=== PATIENT | male | born 2005 | race Caucasian/White ===

== ENCOUNTER 2024-07-21 11:43 | Emergency (ER) | payer OTHER, SELFPAY ==
[2024-07-21 11:57] VITALS: BP 131/71; PULSE 103; RESP 16; TEMP 37; O2SAT 99
--- NOTE | 2024-07-21 12:16 | ED.EAR ---
HPI - Ear Problem General Chief complaint: Ear Stated complaint: right ear issue Time Seen by Provider: 07/21/24 12:04 Source: patient and RN notes reviewed Mode of arrival: ambulatory Limitations: no limitations History of Present Illness HPI Narrative: Patient presents today complaining of a 4-5 month history of clear fluid leaking from the right ear with decreased hearing as well as increased popping in the last month. Yesterday he sneezed and has bloody drainage from the ear. Denies any current pain. Related Data Allergies Allergy/AdvReac Type Severity Reaction Status Date / Time No Known Allergies Allergy Verified 07/21/24 12:00 Review of Systems Review of Systems: CONSTITUTIONAL: Denies body aches, fever, chills, or sweats. EYES: Denies visual changes, redness, or discharge. ENT: Denies rhinorrhea, congestion, sore throat. + right ear popping and drainage CARDIOVASCULAR: Denies chest pain, palpitations, or edema. RESPIRATORY: Denies cough or dyspnea. GASTROINTESTINAL: Denies abdominal pain, nausea, vomiting, or diarrhea. GENITOURINARY: Denies dysuria or hematuria. SKIN: Denies rash, itching, or wounds. MUSCULOSKELETAL: Denies back pain, joint pain, or myalgia. NEUROLOGIC: Denies headache, numbness, tingling, or weakness. PSYCH: Denies depression or anxiety. PMFSH Comments At time of signature, I have reviewed and agree with nursing past medical, surgical, social and family history unless otherwise noted. Please see nursing chart for further information. There is no relevant family history pertinent to the presenting complaint Exam Narrative: GENERAL: Well-appearing, well-nourished, and in no acute distress. HEAD: Normocephalic, atraumatic. EYES: EOMI. No redness or drainage. Conjunctivae normal. ENT: Mucous membranes pink and moist. Right ear: External canal normal. TM unable to be visualized due to copious blood-tinged purulent discharge in the canal. NECK: Normal AROM. CHEST: No respiratory distress. EXTREMITIES: Normal range of motion. No edema. SKIN: Warm, dry, no rash. Capillary refill normal. Normal skin turgor. NEURO: No focal deficits. Alert and oriented x3. Gait steady. PSYCH: Normal affect. No signs of depression or anxiety. Course Course Level of Care: Express Care Visit Vital Signs Vital signs: Vital Signs Temperature 98.6 F 07/21/24 11:57 Pulse Rate 103 H 07/21/24 11:57 Respiratory Rate 16 07/21/24 11:57 Blood Pressure 131/71 07/21/24 11:57 Pulse Oximetry 99 07/21/24 11:57 Oxygen Delivery Room Air 07/21/24 11:57 Temperature 98.6 F 07/21/24 11:57 Pulse Rate 103 H 07/21/24 11:57 Respiratory Rate 16 07/21/24 11:57 Blood Pressure 131/71 07/21/24 11:57 Pulse Oximetry 99 07/21/24 11:57 Oxygen Delivery Room Air 07/21/24 11:57 Reviewed Medical Decision Making MDM Narrative Medical decision making narrative: Removed some drainage from canal with Qtip but was still unable to visualize TM. Prescription for Augmentin sent to pharmacy. Anticipatory guidance given. Differential Diagnosis Differential Diagnosis: Otitis media, deer externa, ruptured TM, serous otitis, cerumen impaction Vital Signs Vital Signs: Vital Signs Temperature 98.6 F 07/21/24 11:57 Pulse Rate 103 H 07/21/24 11:57 Respiratory Rate 16 07/21/24 11:57 Blood Pressure 131/71 07/21/24 11:57 Pulse Oximetry 99 07/21/24 11:57 Oxygen Delivery Room Air 07/21/24 11:57 Temperature 98.6 F 07/21/24 11:57 Pulse Rate 103 H 07/21/24 11:57 Respiratory Rate 16 07/21/24 11:57 Blood Pressure 131/71 07/21/24 11:57 Pulse Oximetry 99 07/21/24 11:57 Oxygen Delivery Room Air 07/21/24 11:57 Critical Care Time Critical Care Time Critical Care Time: No Discharge Plan Discharge Clinical Impression: Acute suppur right otitis media w/spontan rupture of tympanic membrane Qualifiers: Recurrence: non-recurrent Qualified Code(s): H66
== END 2024-07-21 12:26 | disposition home or self-care (01) ==
PROVIDERS: Emergency Provider Nurse Practitioner
DX: H66.011 Acute suppurative otitis media with spontaneous rupture of ear drum, right ear (principal)
CPT/HCPCS: 99203; G0463